=== PATIENT | female | born 1930 | race Caucasian/White ===

== ENCOUNTER 2017-01-01 20:15 | Inpatient (IN) | payer MEDICARE, SELFPAY, OTHER ==
--- NOTE | ~2017-01-01 | HP ---
History And Physical [place] [address] [facility] [place]. [address] NAME: FUENTES CARBAJAL : [birth year] STATUS : ADM IN PAT#: [id number] AGE: 86 ADM/REG DATE : 01/01/17 MR#: [id number] REPORT SERV DATE: 01/02/17 DICTATED BY: JESSE CISNEROS DATE: 01/01/17 REPORT STATUS : Draft TRANSCRIBED BY: MODL DATE: 01/01/17 DATE OF ADMISSION: 01/01/2017 IDENTIFYING DATA: An 86-year-old white female, whose PCP is Dr. Pereira. CHIEF COMPLAINT: Right-side weakness. HISTORY OF PRESENT ILLNESS: This history of present illness is obtained by discussion with the patient as well as a granddaughter at the bedside. I also spoke on the phone with the emergency room physician at [facility], Dr. Bauer. The patient states she was feeling fine yesterday. She woke up sometime in the night. She remembers feeling a bit short of breath. She got up to go to the bathroom. She states she fell, she had difficulty getting up. She was there by herself. She struggled some to get up, but finally did get back to bed. Some family members called to check on her today, sometime around noon. She did not seem like herself, so they went over there, she seemed confused, she was complaining of right-sided numbness. She states she remembers her right arm, especially feeling numb. She is not sure about the leg. Family states she did not seem to remember much of what happened through the night initially and seemed to be confused. She went to the ER at [facility] and they did a CT scan of the brain without contrast, finding acute ischemic changes in the left posterior medial temporal lobe and the left occipital lobe, some mild atrophy. The patient requested transfer here to [facility]. She has a chart history of a prior lacunar infarction. She does not seem to remember that at this time nor does her family. REVIEW OF SYSTEMS: She has been fatigued recently. She has chronic pain. She has mild chronic ankle edema. She denies fever, cough, nasal congestion, chest pain, abdominal pain, nausea, vomiting, diarrhea, rectal bleeding, melena, dysuria, urinary hesitancy, rash, or syncope. ALLERGIES: NO KNOWN DRUG ALLERGIES. PAST MEDICAL HISTORY: She denies a history of asthma, COPD, heart disease, seizure, liver disease, thyroid disease, or cancer. She does not know anything about sleep apnea. 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 She has a chart history of previous peptic ulcer years ago and also history of colon polyps. She has known hypertension. She has a history of bilateral carotid artery stenosis, treated in the past with right-sided carotid stent. She does not remember who did that intervention for her. She has a history of diabetes mellitus type 2, she does not recall how long. 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 She has had osteoarthritis with a lot of chronic pain in her back and legs. She has had hypothyroidism. 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 She reportedly has had chronic urinary tract infections. History And Physical [address] [address] NAME: FUENTES CARBAJAL : [birth year] STATUS : ADM [facility]#: [id number] AGE: 86 ADM/REG DATE : 01/01/17 MR#: [id number] REPORT SERV DATE: 01/02/17 DICTATED BY: JESSE CISNEROS DATE: 01/01/17 REPORT STATUS : Draft TRANSCRIBED BY: SREE DATE: 01/01/17 HOME MEDICATIONS: List per the ER at [facility] includes Septra DS one p.o. daily, Plavix 75 mg daily, Coreg 12.5 mg b.i.d., lisinopril 5 mg daily, Celexa 10 mg daily, diazepam 5 mg twice daily as needed for anxiety, MS Contin 30 mg q.12 hours, Lyrica 150 mg b.i.d., Lasix 20 mg daily, KCl 20 mEq p.o. daily, Protonix 40 mg daily, MiraLAX one packet daily, levothyroxine 75 mcg p.o. daily. SURGICAL HISTORY: She has had cervical spine and lumbar spine surgery. She has had some fatty tumor removed from breast, cholecystectomy, and a right knee operation. SOCIAL HISTORY: She quit smoking in the . No alcohol intake history. She lives alone at home. She uses a walker. Her son stays there when he is in town. She has no significant alcohol intake history. FAMILY HISTORY: Kind of vague, sounds like parents may have had heart disease and gastrointestinal problems. Siblings with some unknown type of cancer. DIAGNOSTIC DATA: EKG done at [facility] shows sinus rhythm with occasional PVC, left axis -40 degrees and poor R-wave progression. Sodium 142, potassium 4.2, chloride 107, CO2 is 27.9, BUN 31, creatinine 1.5 and by comparison when she was here on 09/06/2016, her creatinine was 1.1. Her CMP today was remarkable for glucose of 217 and a globulin of 4.0, is otherwise unremarkable. Serum alcohol level negative. Pro-time is 10.2, INR 1.0, PTT is 24.5. The white count is 7.8, hemoglobin 12.5, MCV is elevated at 101.3, platelets are 131,000. Urinalysis shows trace blood, protein of 30, epithelial cells 2-5. CT scan of the brain read by the radiologist to show acute ischemic infarction, left posterior medial temporal lobe and left occipital lobe mild atrophy, some distal vertebral and carotid siphon atherosclerotic calcifications. Chest x-ray was interpreted by their radiologist as no acute cardiopulmonary process. PHYSICAL EXAMINATION: VITAL SIGNS: Temperature 99, pulse 45, respirations 18, blood pressure 184/70, and O2 saturation is 99% on room air. GENERAL: A well-developed, older female, who at this time appears in no acute distress. HEENT: Head: Atraumatic. She appears to be blind, not even able to sense light on the right eye. Left eye does have reasonable vision. Her extraocular motions are intact. No scleral icterus noted. Ears: Externally unremarkable. No inflammatory changes. Normal hearing. Nose: Noninflamed externally. Septum midline. Nares patent. Mouth: Moist. Good gag. No redness of the throat, gums, or lips. NECK: Supple. No lymph node or thyroid enlargement. The carotids have good pulses. No bruits. LUNGS: Clear. Good air flow. No wheezes. No rhonchi. HEART: Bradycardic and regular without gallop, click, murmur, or rub. ABDOMEN: Bowel sounds are positive. Soft, nondistended, nontender. No masses. No organomegaly. EXTREMITIES: Warm. Good pulses. No clubbing or cyanosis. No edema. No actively inflamed skin or joints. NEUROLOGIC: She is alert. She is oriented. Her speech is clear and appropriate. Her motor strength is 2/5 in the right upper extremity (she is right handed). Strength is 4/5 in the History And Physical [address] [place]. [address] NAME: FUENTES CARBAJAL : [birth year] STATUS : ADM IN PAT#: [id number] AGE: 86 ADM/REG DATE : 01/01/17 MR#: [id number] REPORT SERV DATE: 01/02/17 DICTATED BY: JESSE CISNEROS DATE: 01/01/17 REPORT STATUS : Draft TRANSCRIBED BY: SREE DATE: 01/01/17 left upper extremity. Strength in the right thigh is 2/5, left thigh is 3/5. No Babinski. No clonus noted. Cranial nerves II through XII grossly normal. Diminished sensation entire right side of the body compared to the left. ASSESSMENT: 1. Acute right-sided numbness and weakness with what looks like on CT to ischemic strokes, suggesting the possibility of embolic source. 2. History of peripheral arterial disease with previous bilateral carotid involvement and previous history of a right carotid stent. 3. Acute kidney injury. 4. Metabolic encephalopathy, probably related to the stroke. 5. See past medical history. PLAN: 1. Admit to the Neurology and Stroke Unit. 2. Telemetry. 3. Get MRI of brain, MRA of the brain, MRA of the neck, also echocardiogram. We will ask PT and OT to see her as well as Neurology. We will have her on aspirin and Plavix. We will check a TSH. We will consider a loop recorder as an option to look for occult atrial fibrillation. RSG/MODL Jesse Cisneros M.D. / [id number] CC: DO Dr. Randall Rome
--- NOTE | ~2017-01-01 | CN ---
Consultation Report [facility] [address] [place]. [address] NAME: FUENTES CARBAJAL : [birth year] STATUS : ADM IN [facility]#: [id number] AGE: 86 ADM/REG DATE : 01/01/17 MR#: [id number] REPORT SERV DATE: 01/02/17 DICTATED BY: DATE: REPORT STATUS : Draft TRANSCRIBED BY: MODL DATE: 01/02/17 NEUROLOGY CONSULTATION DATE OF CONSULTATION: 01/02/2017 REASON FOR CONSULT: Stroke. HISTORY OF PRESENT ILLNESS: This is an 86-year-old female, presented to [facility] on 01/01/2017, secondary to encephalopathy as well as confusion. The patient was subsequently noted to have a stroke in the left parieto-occipital area. As a result, patient was transfer from outside hospital ER to [facility] for admission as well as for further management. The patient was noted to have unknown duration of weakness as well as encephalopathy. With the patient's family denies pre-existing history of memory difficulties, or confusion, symptoms appear to have persisted. With the patient noted to have also some dysarthria. No reports of similar events in the past. The patient does have a history of GI bleeding, secondary to gastric ulcers in the past. The patient at baseline was taking aspirin as well as Plavix. No other recent changes in medication were otherwise noted. PAST MEDICAL HISTORY: The patient past medical history is significant for history of again GI bleeding, as well as erosive gastropathy and gastritis. The patient does have a history of colon polyps, as well as peptic ulcer disease, history of hypertension, bilateral carotid artery stenosis with stents in the right carotid artery. The patient does have type 2 diabetes, as well as a history of anomalous carotid artery, osteoarthritis with chronic pain, at baseline taking narcotic for pain control, as well as hypothyroidism, right eye blindness, and the patient also has had history of chronic urinary tract infection. SOCIAL HISTORY: The patient does have remote history of tobacco usage, quit in . The patient at baseline uses a walker. No reports of alcohol or illicit drug usage was noted. FAMILY HISTORY: Significant for heart disease, as well as GI problems, and cancer. ALLERGIES: NO KNOWN DRUG ALLERGIES. HOME MEDICATIONS: Norvasc, aspirin, Coreg, vitamin D3, Plavix, vitamin B12, Xalatan, levothyroxine, lisinopril, MS Contin, fish oil, Percocet, Protonix, MiraLAX, Crestor, and Bactrim. REVIEW OF SYSTEMS: Otherwise negative except for those mentioned in the HPI. PHYSICAL EXAMINATION: VITAL SIGNS: At the time of evaluation, overnight the patient was noted to have vital signs with T-max of 98.6, heart rate of 50 to 62, respiration of 16 to 21, and blood pressure of Consultation Report [address] [place]. [address] NAME: FUENTES CARBAJAL : [birth year] STATUS : ADM IN PAT#: [id number] AGE: 86 ADM/REG DATE : 01/01/17 MR#: [id number] REPORT SERV DATE: 01/02/17 DICTATED BY: DATE: REPORT STATUS : Draft TRANSCRIBED BY: MODL DATE: 01/02/17 119 to 183/53 to 74. GENERAL: The patient is well-developed, well-nourished, in no acute distress. CARDIOVASCULAR: Regular rate and rhythm. No carotid bruits were otherwise auscultated. PULMONARY: Clear to auscultation bilaterally. NEUROLOGIC: Generally, the patient is lethargic, but arousable, have some mild difficulty maintaining arousal. Pupils reactive on the left, difficult to see on the right. Otherwise, the patient was noted to have a facial asymmetry. With the patient noted to have a gaze preference to the left, able to move slightly across the midline. Blink to threat response was noted in the left, but not in the right. Right lower facial weakness and decreased nasolabial fold was also noted, with time mildly deviated to the left. A symmetric palatal movement was noted. The patient was noted to have mild hearing difficulties. Left and right confusion was also observed. At the time of evaluation, patient was noted to have 4-/5 right upper extremity strength, as well as 4+/5 left upper extremity strength, and 4/5 bilateral lower extremity strength, might be slightly weaker on the right lower extremity compared to the left. With the patient was noted to have intact sensation. The patient was noted to have decreased reflexes throughout. Upgoing toe on bilateral plantar reflexes. Gait was not evaluated, due to the patient's mental status, as well as weakness. DIAGNOSTIC DATA: At the time of evaluation, MRI of the head was reviewed which demonstrated a significant left COAT [employer]ER LOCKSTITCH territory infarction in the left parieto-occipital area. No hemorrhage was otherwise observed. The patient does have MRA of the neck, however, difficult to assess the degree of stenosis in the left internal carotid, secondary to calcifications, as well as stents in the right internal carotid artery. Carotid Doppler study is otherwise pending. 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 Time of onset is unclear. NIH stroke scale was noted to be 15. We will obtain Physical Therapy and occupational Therapy. Echocardiogram and carotid Doppler study are otherwise pending. We will also check fasting lipid panel, as well as ammonia level, secondary to history of recent GI bleed. We will continue aspirin 81 mg p.o. daily, and Plavix 75 mg p.o. daily. We will not increase dose of aspirin. We will continue Lipitor 40 mg p.o. daily. RECOMMENDATION: 1. Continue aspirin 81 mg p.o. daily. 2. Continue Plavix 75 mg p.o. daily. 3. PT/OT. 4. Lipitor 40 mg p.o. at bedtime. 5. Echocardiogram pending. 6. Carotid Doppler study pending. 7. Ammonia level and fasting lipid panel with morning labs. Consultation Report [address] [address] NAME: FUENTES CARBAJAL : [birth year] STATUS : ADM IN [facility]#: [id number] AGE: 86 ADM/REG DATE : 01/01/17 MR#: [id number] REPORT SERV DATE: 01/02/17 DICTATED BY: DATE: REPORT STATUS : Draft TRANSCRIBED BY: SREE DATE: 01/02/17 [facility]/SREE Narinder Liriano MD / [id number] CC: DO Santana Rome M.D.
--- NOTE | ~2017-01-01 | DS ---
Discharge Summary [facility] [address] [facility] [place]. [address] NAME: FUENTES CARBAJAL : [birth year] STATUS : DIS IN PAT#: [id number] AGE: 86 ADM/REG DATE : 01/01/17 MR#: [id number] REPORT SERV DATE: 01/07/17 DICTATED BY: SHERRIE SUÁREZ DATE: 01/06/17 REPORT STATUS : Draft TRANSCRIBED BY: MODL DATE: 01/06/17 ADMISSION DATE: 01/01/2017 DISCHARGE DATE: 01/06/2017 HOSPITAL COURSE: This is an 86-year-old, unfortunate, female with known past medical history of GI bleed, erosive gastropathy, gastritis, hypertension, bilateral carotid artery stenosis treated in the past with right carotid stent, diabetes, osteoarthritis, chronic back pain, blindness in the right eye, chronic UTIs, known history of vascular dementia. Came in with recent grieving from the loss of her , very poor quality of life as a result. She has right-sided numbness and right-sided weakness, went to ER at [facility] [place] [place]. The CT without contrast showing no acute ischemic changes, left posterior medial temporal lobe, left occipital lobe, and mild atrophy. As a result, she was sent here to [facility], and unfortunately was found to have essentially stable acute multifocal ischemic infarcts, largest left temporal lobe, left occipital lobe, posterior cerebral artery distribution with additional small acute strokes, anterior left rosita, left thalamus, localized mass effect associated with large left medial temporal lobe, and occipital lobe infarct, effacement of the overlying sulci and partial effacement of the atrium left and lateral ventricle, temporal horn of left lateral ventricle with no hemorrhagic changes, old infarcts in both basal ganglia bilaterally. She had a carotid ultrasound which showed 99% stenosis involving the left ICA, likely 95% or greater. No significant stenosis in the right carotid. As a result, vascular surgery was consulted, stated that the risks outweigh the benefits at this time. If she were to get clinically stronger, we will consider surgery at that time. The patient, with discussion with the family, has very poor quality of life. The patient has had not had much improvement in her right upper extremity power. The patient, as a result, is also seen to have a positive bubble study, possible PFO, would likely not be amenable to a thoracic surgery as well given her advanced age and comorbidities. The patient had a fever of 100.8. Family prior to that was considering possible hospice at one time, more notably the granddaughter, and upon hearing that, with worsened prognosis, decided to have inpatient contract bed with hospice to enhance her quality of life. Pain medications for labored breathing. The patient is placed on Keppra for her right arm spasming at one time, and then was more sedated thereafter. We stopped the Keppra. EEG did not show a clear seizure, made DNR/DNI. She has some mild pyuria and was started on Zosyn after her fever. Given her oxygen requirements, it may also reflect potential aspiration event. The patient's family have agreed for hospice inpatient contract bed. On discharge today, pain medications for labored breathing, otherwise per hospice. CONSULTATIONS: Vascular Surgery and Neurology. PROCEDURES: None. DISCHARGE DIAGNOSES: Fairly extensive [employer] stroke, left parietal occipital area, baseline gait abnormality, now unfortunately of the left ICA stenosis. Discharge Summary [address] [address] NAME: FUENTES CARBAJAL : [birth year] STATUS : DIS IN PAT#: [id number] AGE: 86 ADM/REG DATE : 01/01/17 MR#: [id number] REPORT SERV DATE: 01/07/17 DICTATED BY: SHERREI SUÁREZ DATE: 01/06/17 REPORT STATUS : Draft TRANSCRIBED BY: SREE DATE: 01/06/17 No current surgical intervention due to Cardiology risk as well as risk of not doing well with surgery. Discharge medications and follow-ups per hospice. Hopefully, can survive inpatient contract bed at hospice and go home with hospice. Defer to hospice and their expertise. All questions were answered. It took well over 30 minutes to do. LEONORT/SREE Sherrie Suárez DO / [id number]
[~2017-01-01 20:15] MED LIST: ALLEGRA180 PO; ANUSOL HC SUPP1 SUPP PR; ASAB PO; BAC PO; BUFFERIN PO; CELEXA10 PO; COREG12 PO; CRESTOR20 MG PO; CYANO1000T PO; ENDOCET1 TAB PO; FIBER THERAPY PO; FISH OIL1200 MG PO; FISH-EPA1000 MG PO; FORTEO SC; GLUCOTRO10 PO; GLUCPH PO; GLUCXL10 PO; HALF81 PO; INDOCIN SR75 MG PO; K-TABS10 MEQ PO; KLOR-CON M2020 MEQ PO; L20 PO; LEVOTHYROXIN25 MCG PO; LIPITOR20 PO; LIPITOR40 PO; LODINE PO; LOTREL1 CA1 PO; LYRICA150 MG PO; METHOC500B PO; MIRALAXPKT PO; MOBIC15 MG PO; MSCONT15 PO; MSCONTIN PO; NEXIUM40 PO; NORV10 PO; NORV5 PO; OS500 PO; OXAPROZIN600 MG PO; PERCOCET1 TA4 PO; PLAVIX PO; PROTONIX PO; TRAZ50 PO; V5 PO; VITAMIN D31000 UNIT PO; X5 PO; XALAT OPH; ZESTRIL5 MG PO; [UNRECOGNIZED DRUG - OTHER] SC
[2017-01-02 05:41] LABS: CALCIUM, SERUM 9.2 MG/DL (8.5-10.4); CHLORIDE, SERUM 113 MMOL/L (96-112); CO2 (CARBON DIOXIDE) 23 MMOL/L (24-34); CREATININE 1.18 MG/DL (0.55-1.02); GFR AFRICAN AMERICAN 48 ML/MIN (>=60); GFR NON AFRICAN AMERICAN 41 ML/MIN (>=60); POTASSIUM, SERUM 4.3 MMOL/L (3.5-5.3); SODIUM, SERUM 144 MMOL/L (135-148); TROPONIN I <0.02 NG/ML (<0.05)
[2017-01-02 05:42] LABS: BUN (BLOOD UREA NITROGEN) 24 MG/DL (6-23); FOLATE 17.1 NG/ML (>5.2); GLUCOSE, SERUM 124 MG/DL (60-99); ULTRASENSITIVE TSH 0.747 MCIU/ML (0.358-3.740)
[2017-01-02 07:38] LABS: GLYCOHEMOGLOBIN (HbA1c) 6.6 % (4.7-6.1)
[2017-01-03 05:03] LABS: BUN (BLOOD UREA NITROGEN) 22 MG/DL (6-23); CALCIUM, SERUM 9.5 MG/DL (8.5-10.4); CHLORIDE, SERUM 110 MMOL/L (96-112); CHOL/HDL RATIO(NOT ORDER) 2.3 (0-5); CHOLESTEROL 96 MG/DL (< 200); CO2 (CARBON DIOXIDE) 21 MMOL/L (24-34); CREATININE 0.93 MG/DL (0.55-1.02); GFR AFRICAN AMERICAN 64 ML/MIN (>=60); GFR NON AFRICAN AMERICAN 55 ML/MIN (>=60); GLUCOSE, SERUM 105 MG/DL (60-99); HDL CHOLESTEROL 42 MG/DL (> 49); LDL CHOLESTEROL 22 MG/DL (< 130); NON-HDL CHOLESTEROL 54 MG/DL (< 160); PHOSPHORUS, SERUM 3.2 MG/DL (2.5-4.5); POTASSIUM, SERUM 4.2 MMOL/L (3.5-5.3); SODIUM, SERUM 142 MMOL/L (135-148); TRIGLYCERIDE 164 MG/DL (< 150)
[2017-01-03 05:49] LABS: BASOPHILS 0.3 %; BASOPHILS ABSOLUTE 0.02 10/3/uL (0.0-0.16); EOSINOPHILS 1.4 %; EOSINOPHILS ABSOLUTE 0.08 10/3/uL (0.0-0.53); HEMATOCRIT 37.2 % (36.0-48.0); HEMOGLOBIN 12.1 g/dL (12.0-16.0); IMMATURE GRANULOCYTES 0.2 %; IMMATURE GRANULOCYTES ABSOLUTE 0.01 10/3/uL (0.0-0.11); LYMPHOCYTES 39.2 %; LYMPHOCYTES ABSOLUTE 2.25 10/3/uL (0.67-4.30); MEAN CORPUS HGB CONC 32.5 g/dL (32.0-36.0); MEAN CORPUSCULAR HEMOGLOB 31.8 pg (26.0-34.0); MEAN CORPUSCULAR VOLUME 97.6 fL (80-100); MONOCYTES 13.6 %; MONOCYTES ABSOLUTE 0.78 10/3/uL (0.21-1.20); NEUTROPHILS 45.3 %; PLATELET COUNT 111 10/3/uL (150-400); RBC DISTRIBUTION WIDTH 13.2 % (12.0-16.0); RED CELL COUNT 3.81 10/6/uL (4.0-5.6); WHITE BLOOD CELLS 5.7 10/3/uL (4.5-10.5)
[2017-01-03 06:31] LABS: MANUAL DIFF NO %
[2017-01-04 06:01] LABS: BASOPHILS 0.1 %; BASOPHILS ABSOLUTE 0.01 10/3/uL (0.0-0.16); EOSINOPHILS 1.1 %; EOSINOPHILS ABSOLUTE 0.08 10/3/uL (0.0-0.53); HEMATOCRIT 36.1 % (36.0-48.0); HEMOGLOBIN 12.1 g/dL (12.0-16.0); IMMATURE GRANULOCYTES 0.1 %; IMMATURE GRANULOCYTES ABSOLUTE 0.01 10/3/uL (0.0-0.11); LYMPHOCYTES 18.4 %; LYMPHOCYTES ABSOLUTE 1.35 10/3/uL (0.67-4.30); MEAN CORPUS HGB CONC 33.5 g/dL (32.0-36.0); MEAN CORPUSCULAR HEMOGLOB 32.2 pg (26.0-34.0); MEAN PLATELET VOLUME 11.5 fL (9.2-13.0); MONOCYTES 12.5 %; MONOCYTES ABSOLUTE 0.92 10/3/uL (0.21-1.20); NEUTROPHILS 67.8 %; NEUTROPHILS ABSOLUTE 4.98 10/3/uL (2.02-8.40); PLATELET COUNT 120 10/3/uL (150-400); RBC DISTRIBUTION WIDTH 13.2 % (12.0-16.0); RED CELL COUNT 3.76 10/6/uL (4.0-5.6); WHITE BLOOD CELLS 7.4 10/3/uL (4.5-10.5)
[2017-01-04 06:03] LABS: MANUAL DIFF NO %
[2017-01-04 06:11] LABS: BUN (BLOOD UREA NITROGEN) 21 MG/DL (6-23); CALCIUM, SERUM 9.3 MG/DL (8.5-10.4); CHLORIDE, SERUM 104 MMOL/L (96-112); CREATININE 1.17 MG/DL (0.55-1.02); GFR AFRICAN AMERICAN 49 ML/MIN (>=60); GFR NON AFRICAN AMERICAN 42 ML/MIN (>=60); PHOSPHORUS, SERUM 3.3 MG/DL (2.5-4.5); POTASSIUM, SERUM 4.1 MMOL/L (3.5-5.3); SODIUM, SERUM 140 MMOL/L (135-148)
[2017-01-04 06:14] LABS: CO2 (CARBON DIOXIDE) 26 MMOL/L (24-34); GLUCOSE, SERUM 147 MG/DL (60-99)
[2017-01-04 17:07] LABS: ASCORBIC ACID (UR NOT ORDER) NEG (NEG); BILIRUBIN, URINE NEGATIVE (NEG); KETONE, URINE NEGATIVE (NEG); LEUKOCYTE ESTERASE(NOT OR NEG (NEG); WBC (NOT ORDERED) (RFLEX) < 1 (0-5)
[2017-01-04 17:11] LABS: FOLATE 17.7 NG/ML (>5.2)
[2017-01-05 06:09] LABS: BASOPHILS 0.1 %; BASOPHILS ABSOLUTE 0.01 10/3/uL (0.0-0.16); EOSINOPHILS 0.3 %; EOSINOPHILS ABSOLUTE 0.02 10/3/uL (0.0-0.53); HEMATOCRIT 35.8 % (36.0-48.0); HEMOGLOBIN 11.8 g/dL (12.0-16.0); IMMATURE GRANULOCYTES 0.3 %; IMMATURE GRANULOCYTES ABSOLUTE 0.02 10/3/uL (0.0-0.11); LYMPHOCYTES 21.2 %; LYMPHOCYTES ABSOLUTE 1.68 10/3/uL (0.67-4.30); MEAN CORPUSCULAR HEMOGLOB 32.2 pg (26.0-34.0); MEAN CORPUSCULAR VOLUME 97.5 fL (80-100); MEAN PLATELET VOLUME 11.6 fL (9.2-13.0); MONOCYTES 18.3 %; MONOCYTES ABSOLUTE 1.45 10/3/uL (0.21-1.20); NEUTROPHILS 59.8 %; NEUTROPHILS ABSOLUTE 4.73 10/3/uL (2.02-8.40); PLATELET COUNT 105 10/3/uL (150-400); RBC DISTRIBUTION WIDTH 12.9 % (12.0-16.0); RED CELL COUNT 3.67 10/6/uL (4.0-5.6); WHITE BLOOD CELLS 7.9 10/3/uL (4.5-10.5)
[2017-01-05 06:10] LABS: MANUAL DIFF NO %
[2017-01-05 06:16] LABS: BUN (BLOOD UREA NITROGEN) 20 MG/DL (6-23); CHLORIDE, SERUM 103 MMOL/L (96-112); CO2 (CARBON DIOXIDE) 30 MMOL/L (24-34); CREATININE 1.14 MG/DL (0.55-1.02); GFR AFRICAN AMERICAN 50 ML/MIN (>=60); GFR NON AFRICAN AMERICAN 43 ML/MIN (>=60); GLUCOSE, SERUM 153 MG/DL (60-99); PHOSPHORUS, SERUM 3.3 MG/DL (2.5-4.5); POTASSIUM, SERUM 3.9 MMOL/L (3.5-5.3); SODIUM, SERUM 139 MMOL/L (135-148)
[2017-01-05 13:54] LABS: ASCORBIC ACID (UR NOT ORDER) NEG (NEG); BILIRUBIN, URINE NEGATIVE (NEG); KETONE, URINE NEGATIVE (NEG); LEUKOCYTE ESTERASE(NOT OR SMALL (NEG); WBC (NOT ORDERED) (RFLEX) 7 (0-5)
[2017-01-06 06:09] LABS: BASOPHILS 0.1 %; BASOPHILS ABSOLUTE 0.01 10/3/uL (0.0-0.16); EOSINOPHILS 0.1 %; EOSINOPHILS ABSOLUTE 0.01 10/3/uL (0.0-0.53); HEMATOCRIT 33.4 % (36.0-48.0); HEMOGLOBIN 11.1 g/dL (12.0-16.0); IMMATURE GRANULOCYTES 0.2 %; IMMATURE GRANULOCYTES ABSOLUTE 0.02 10/3/uL (0.0-0.11); LYMPHOCYTES 17.5 %; LYMPHOCYTES ABSOLUTE 1.41 10/3/uL (0.67-4.30); MEAN CORPUS HGB CONC 33.2 g/dL (32.0-36.0); MEAN CORPUSCULAR VOLUME 99.4 fL (80-100); MONOCYTES 16.7 %; MONOCYTES ABSOLUTE 1.35 10/3/uL (0.21-1.20); NEUTROPHILS 65.4 %; NEUTROPHILS ABSOLUTE 5.27 10/3/uL (2.02-8.40); PLATELET COUNT 108 10/3/uL (150-400); RBC DISTRIBUTION WIDTH 13.1 % (12.0-16.0); RED CELL COUNT 3.36 10/6/uL (4.0-5.6); WHITE BLOOD CELLS 8.1 10/3/uL (4.5-10.5)
[2017-01-06 06:10] LABS: MANUAL DIFF NO %
[2017-01-06 06:19] LABS: CALCIUM, SERUM 8.8 MG/DL (8.5-10.4); CHLORIDE, SERUM 103 MMOL/L (96-112); CO2 (CARBON DIOXIDE) 28 MMOL/L (24-34); CREATININE 1.32 MG/DL (0.55-1.02); GFR AFRICAN AMERICAN 42 ML/MIN (>=60); GFR NON AFRICAN AMERICAN 36 ML/MIN (>=60); GLUCOSE, SERUM 145 MG/DL (60-99); PHOSPHORUS, SERUM 3.4 MG/DL (2.5-4.5); POTASSIUM, SERUM 3.8 MMOL/L (3.5-5.3); SODIUM, SERUM 139 MMOL/L (135-148)
[2017-01-06 06:27] LABS: BUN (BLOOD UREA NITROGEN) 24 MG/DL (6-23)
== END 2017-01-06 20:31 | disposition hospice, home (50) | DRG 64 ==
LOC: 1SO 20:15
PROVIDERS: Internal Medicine
DX: I63.232 Cerebral infarction due to unspecified occlusion or stenosis of left carotid arteries (principal); G93.41 Metabolic encephalopathy; N17.9 Acute kidney failure, unspecified; G81.91 Hemiplegia, unspecified affecting right dominant side; E03.9 Hypothyroidism, unspecified; R29.715 NIHSS score 15; I10 Essential (primary) hypertension; Z66 Do not resuscitate; Z51.5 Encounter for palliative care; G89.29 Other chronic pain; F01.50 Vascular dementia, unspecified severity, without behavioral disturbance, psychotic disturbance, mood disturbance, and anxiety; E11.9 Type 2 diabetes mellitus without complications; I73.9 Peripheral vascular disease, unspecified; M79.604 Pain in right leg; H54.41 Blindness, right eye, normal vision left eye; F41.9 Anxiety disorder, unspecified; M79.605 Pain in left leg; M54.9 Dorsalgia, unspecified; Z79.82 Long term (current) use of aspirin; Z79.02 Long term (current) use of antithrombotics/antiplatelets; Z79.891 Long term (current) use of opiate analgesic; Z79.899 Other long term (current) drug therapy; Z87.891 Personal history of nicotine dependence; Z87.11 Personal history of peptic ulcer disease; Z86.010 Personal history of colon polyps; Z87.440 Personal history of urinary (tract) infections
CPT/HCPCS: 70544; 70547; 70551; 71010; 80048; 80061; 81001; 82140; 82607; 82746; 82962; 83036; 83735; 83880; 84100; 84443; 84484; 85025; 87040; 87077; 87086; 87186; 92610-GN; 93005; 93306; 93880; 97112-GO; 97162-GP; 97167-GO; 97530-GP; 97532-GO; A9270-GY; G8978-CK-GP; G8979-CK-GP; G8980-CJ-GP; G8987-CL-GO; G8988-CL-GO; G8989-CL-GO; G8996-CK-GN; G8997-CK-GN; G8998-CK-GN; J0360; J2543